=== PATIENT | male | born 1960 | race Asian ===

== ENCOUNTER 2019-12-09 08:04 | Emergency (ER) | payer OTHER ==
[2019-12-09] MEDS ORDERED: IBUPROFEN 800 MG TAB PO ONE (10:59)
[2019-12-09] MEDS ORDERED: ONDANSETRON 4 MG ODT TAB PO ONE (11:00)
--- NOTE | 2019-12-09 12:46 | Emergency Department Report ---
- General Chief Complaint: Upper Respiratory Infection Stated Complaint: CHEST PAIN/FEVER/ACHES Source: patient Mode of arrival: Ambulatory Limitations: No Limitations - History of Present Illness Initial Comments: This is a 59-year-old male complaining of fever body aches and nausea started on night. He denies chest pain and shortness of breath no vomiting no diarrhea - Related Data Previous Rx's Medication Instructions Recorded Last Taken Type Acetaminophen/Codeine [Tylenol #3] 1 tab PO Q6H PRN #20 tab 04/24/15 Unknown Rx Clindamycin [Clindamycin CAP] 300 mg PO Q6H #40 capsule 04/24/15 Unknown Rx Ibuprofen [Motrin] 600 mg PO Q8H PRN #50 tablet 04/24/15 Unknown Rx Loratadine (Nf) [Claritin] 10 mg PO DAILY #30 tablet 04/24/15 Unknown Rx lisinopriL [Zestril TAB] 10 mg PO QDAY #30 tablet 04/24/15 Unknown Rx predniSONE [Deltasone] 40 mg PO QDAY #10 tab 04/24/15 Unknown Rx Ibuprofen [Motrin] 600 mg PO Q8H PRN #21 tablet 12/09/19 Unknown Rx Oseltamivir [Tamiflu] 75 mg PO BID 5 Days #10 cap 12/09/19 Unknown Rx Allergies Allergy/AdvReac Type Severity Reaction Status Date / Time No Known Allergies Allergy Unverified 08/14/14 17:58 ED Review of Systems ROS: Stated complaint: CHEST PAIN/FEVER/ACHES Other details as noted in HPI ED Past Medical Hx - Past Medical History Previous Medical History?: No Hx Hypertension: No Hx CVA: No Hx Heart Attack/AMI: No Hx Congestive Heart Failure: No Hx Diabetes: No Hx Deep Vein Thrombosis: No Hx Pulmonary Embolism: No Hx GERD: No Hx Liver Disease: No Hx Renal Disease: No Hx Sickle Cell Disease: No Hx Arthritis: No Hx Headaches / Migraines: No Hx Seizures: No Hx Kidney Stones: No Hx Psychiatric Treatment: No Hx Asthma: No Hx COPD: No Hx Tuberculosis: No Hx Dementia: No Hx HIV: No - Surgical History Past Surgical History?: Yes Hx Coronary Stent: No Hx Open Heart Surgery: No Hx Pacemaker: No Hx Internal Defibrillator: No Hx Cholecystectomy: No Hx Appendectomy: No Hx Breast Surgery: No Additional Surgical History: Bunion removed off left foot - Social History Smoking Status: Never Smoker Substance Use Type: None - Medications Home Medications: Home Medications Medication Instructions Recorded Confirmed Last Taken Type Acetaminophen/Codeine [Tylenol #3] 1 tab PO Q6H PRN #20 tab 04/24/15 Unknown Rx Clindamycin [Clindamycin CAP] 300 mg PO Q6H #40 capsule 04/24/15 Unknown Rx Ibuprofen [Motrin] 600 mg PO Q8H PRN #50 tablet 04/24/15 Unknown Rx Loratadine (Nf) [Claritin] 10 mg PO DAILY #30 tablet 04/24/15 Unknown Rx lisinopriL [Zestril TAB] 10 mg PO QDAY #30 tablet 04/24/15 Unknown Rx predniSONE [Deltasone] 40 mg PO QDAY #10 tab 04/24/15 Unknown Rx Ibuprofen [Motrin] 600 mg PO Q8H PRN #21 tablet 12/09/19 Unknown Rx Oseltamivir [Tamiflu] 75 mg PO BID 5 Days #10 cap 12/09/19 Unknown Rx ED Physical Exam - General Limitations: No Limitations Critical care attestation.: If time is entered above; I have spent that time in minutes in the direct care of this critically ill patient, excluding procedure time. ED Disposition Clinical Impression: Influenza A Disposition: [id number] TO HOME OR SELFCARE Is pt being admited?: No Does the pt Need Aspirin: No Condition: Stable Instructions: Influenza (ED) Additional Instructions: Rest increase oral fluids. Take Ibuprofen 600 mg tab every 6-8 hrs as needed for bodyaches. Take Tamiflu as prescribed. Follow up with your doctor in 3-5 days Prescriptions: Ibuprofen [Motrin] 600 mg PO Q8H PRN #21 tablet PRN Reason: Pain Oseltamivir [Tamiflu] 75 mg PO BID 5 Days #10 cap Referrals: PRIMARY CARE,MD [Primary Care Provider] - 3-5 Days Time of Disposition: 12:40
== END 2019-12-09 13:05 | disposition home or self-care (01) ==
LOC: ED 08:04
DX: J10.1 Influenza due to other identified influenza virus with other respiratory manifestations (principal); Z98.890 Other specified postprocedural states; Z79.2 Long term (current) use of antibiotics; Z79.899 Other long term (current) drug therapy
CPT/HCPCS: 87400; Q0162